=== PATIENT | male | born 1985 | race Hispanic/Latino ===

== ENCOUNTER 2025-04-28 09:30 | Emergency (ER) | payer SELFPAY ==
[2025-04-28] MEDS ORDERED: Ketorolac Tromethamine 30 MG (1 mL) VIAL ONE (09:42)
[2025-04-28 10:04] LABS: #Basophils 0.04 10x3/uL (0.0-0.2); #Eosinophils 0.21 10x3/uL (0.0-0.5); #Monocytes 0.55 10x3/uL (0.0-1.1); #Neutrophils 8.36 10x3/uL (1.5-8.4); %Basophils 0.4 % (0.0-2.0); %Eosinophils 1.9 % (0.0-6.0); %Lymphocytes 15.0 % (18.0-47.0); %Monocytes 5.1 % (0.0-10.0); %Neutrophils 77.1 % (40.0-75.0); Hematocrit 43.6 % (38.8-50.0); Hemoglobin 16.2 g/dL (13.5-17.5); Mean Corpuscular Hemoglobin 31.0 pg (27.0-33.0); Mean Corpuscular Volume 83.5 fL (81.2-95.1); Platelet Count 145 10x3/uL (150-450); Red Blood Cell (RBC) Count 5.22 10x6/uL (4.32-5.72); White Blood Cell (WBC) Count 10.83 10x3/uL (3.5-10.5)
[2025-04-28 10:19] LABS: ALT (SGPT) 38 U/L (Less than 45); Albumin 4.4 g/dL (3.1-4.5); Alkaline Phosphatase 79 U/L (40-110); Anion Gap 14 mmol/L (10-20); BUN (Urea Nitrogen) 10 mg/dL (8.9-20.6); Bilirubin, Total 0.6 mg/dL (0.3-1.2); Calc. Creatinine Clearance 0 mL/min (70-130); Calcium 9.6 mg/dL (7.8-10.44); Carbon Dioxide 22 mmol/L (22-29); Chloride 102 mmol/L (98-107); Globulin 4.3 g/dL (2.4-3.5); Glucose 145 mg/dL (70-105); Lipase 268 U/L (8-78); Potassium 4.0 mmol/L (3.5-5.1); Sodium 134 mmol/L (136-145)
[2025-04-28 10:24] LABS: Troponin I Less than 0.010 ng/mL (< 0.028)
[2025-04-28 11:19] LABS: AST (SGOT) 31 U/L (11-34)
== END 2025-04-28 13:15 | disposition home or self-care (01) ==
LOC: CSHERS 09:30 → EDBD 09:30 → CSHERS 13:15
DX: K80.20 Calculus of gallbladder without cholecystitis without obstruction (principal); R10.13 Epigastric pain; F17.210 Nicotine dependence, cigarettes, uncomplicated; Z75.8 Other problems related to medical facilities and other health care
CPT/HCPCS: 74177; 76705; 80053; 83690; 84484; 85025; 93005; 96374; 96375; J1885